=== PATIENT | female | born 1945 | race African-American/Black ===

== ENCOUNTER 2019-05-31 15:14 | Inpatient (IN) | payer MEDICARE ==
[~2019-05-31] VITALS: Ht 165.1 cm; Wt 36.0 kg
[~2019-05-31 15:14] MED LIST: AMLO10TA80 PO; ATOR40TA70 PO; CREON PO; DULO60CA44 PO; LOSA50TA41 PO
[2019-05-31 16:20] LABS: CLARITY URINE CLOUDY (CLEAR); COLOR URINE YELLOW (YELLOW); KETONES URINE NEGATIVE (NEGATIVE); LEUKOCYTE ESTERASE URINE TRACE (NEGATIVE); NITRITE URINE NEGATIVE (NEGATIVE); OCCULT BLOOD URINE NEGATIVE (NEGATIVE); PROTEIN URINE NEGATIVE (NEGATIVE); SPECIFIC GRAVITY URINE 1.021 (1.005-1.030); UROBILINOGEN URINE 0.2 E.U./dL (0.2-1.0)
[2019-05-31 16:25] LABS: PROTHROMBIN TIME 10.5 sec (9.6-11.0)
[2019-05-31 16:28] LABS: CHLORIDE 103 mEq/L (98-107)
[2019-05-31 16:32] LABS: ETHANOL BLOOD < 10 mg/dL
[2019-05-31 16:33] LABS: BASOPHILS % 0.8 % (0.0-2.0); EOSINOPHILS % 2.4 % (0.0-5.0); HEMATOCRIT. 41.2 % (36.0-48.0); LYMPHOCYTES % 37.4 % (20.0-50.0); MEAN CORPUSCULAR HEMOGLOBIN 28.4 pg (28.0-32.0); MEAN CORPUSCULAR VOLUME 90.1 fL (81.0-99.0); MEAN PLATELET VOLUME 9.5 fl (7.4-10.4); MONOCYTES % 7.5 % (2.0-8.0); NEUTROPHILS % 51.9 % (40.0-76.0); PLATELET 216 x1000/uL (130-400); RED BLOOD CELL COUNT 4.57 mill/uL (4.2-5.4); RED CELL DISTRIBUTION WIDTH 15.5 % (11.6-14.6)
[2019-05-31 16:36] LABS: LDL CHOLESTEROL 59 mg/dL (5-100)
[2019-05-31 16:43] LABS: *AMPHETAMINES SCREEN URINE NEGATIVE (NEGATIVE)
[2019-05-31 16:44] LABS: *BARBITURATES SCREEN URINE NEGATIVE (NEGATIVE); *BENZODIAZEPINES SCREEN URINE NEGATIVE (NEGATIVE); *COCAINE SCREEN URINE NEGATIVE (NEGATIVE); METHADONE URINE SCREEN NEGATIVE (NEGATIVE); OPIATES URINE SCREEN NEGATIVE (NEGATIVE); PHENCYCLIDINE URINE SCREEN NEGATIVE (NEGATIVE)
[2019-05-31 16:45] LABS: CANNABINOID URINE SCREEN PRESUMTIVE POSITIVE (NEGATIVE)
[2019-05-31] MEDS ORDERED: CEFTRIAXONE 1 G PREMIX 50 ML IV ONE (18:45)
[2019-05-31] MEDS ORDERED: SODIUM CHLORIDE 0.9% 1,000 ML IV ONE (19:37)
[2019-05-31] MEDS ORDERED: INSULIN REGULAR (HUMULIN R) 300UNITS/3ML SUBCUT ONE (20:30)
[2019-05-31 21:41] VITALS: BP 159/87
[2019-05-31] MEDS ORDERED: ACETAMINOPHEN 325MG TABLET PO PRN (23:15)
[2019-05-31] MEDS ORDERED: DEXTROSE 50% WATER 50ML SYRINGE IV PRN (23:15)
[2019-05-31] MEDS: BLOOD SUGAR DIAGNOSTIC STRIP TEST SCH (23:22)
[2019-05-31] MEDS: INSULIN LISPRO 100 UNITS/ML SUBCUT SCH (23:47)
[2019-05-31] MEDS: TRAMADOL 50MG TABLET PO PRN (23:47)
[2019-06-01] VITALS (7 sets, daily range): BP systolic 122–159; BP diastolic 80–91
[2019-06-01] MEDS ORDERED: ROSU20TA2 MT (02:49)
[2019-06-01] MEDS ORDERED: GABA-290 MT (02:50)
[2019-06-01] MEDS ORDERED: OMEP20CA5 MT (02:50)
[2019-06-01] MEDS ORDERED: HYDR-3280 MT (02:51)
[2019-06-01] MEDS ORDERED: AMYL1CAP59 MT (02:53)
[2019-06-01] MEDS: OMEPRAZOLE 20MG CAPSULE EXTENDED RELEASE PO SCH (06:45)
[2019-06-01] MEDS: BLOOD SUGAR DIAGNOSTIC STRIP TEST SCH ×4 (06:45→20:24)
[2019-06-01] MEDS: INSULIN LISPRO 100 UNITS/ML SUBCUT SCH ×4 (07:17→20:25)
[2019-06-01 07:49] LABS: BASOPHILS % 0.5 % (0.0-2.0); EOSINOPHILS % 2.6 % (0.0-5.0); HEMATOCRIT. 41.3 % (36.0-48.0); HEMOGLOBIN. 13.3 g/dL (12.0-16.0); LYMPHOCYTES % 41.4 % (20.0-50.0); MEAN CORPUSCULAR VOLUME 86.7 fL (81.0-99.0); MEAN PLATELET VOLUME 9.3 fl (7.4-10.4); MONOCYTES % 7.9 % (2.0-8.0); NEUTROPHILS % 47.6 % (40.0-76.0); PLATELET 251 x1000/uL (130-400); RED BLOOD CELL COUNT 4.77 mill/uL (4.2-5.4); RED CELL DISTRIBUTION WIDTH 14.4 % (11.6-14.6)
[2019-06-01 07:57] LABS: CHLORIDE 107 mEq/L (98-107)
[2019-06-01 08:10] LABS: LDL CHOLESTEROL 69 mg/dL (5-100)
[2019-06-01 08:11] LABS: HDL CHOLESTEROL 122 mg/dL (40-59)
[2019-06-01] MEDS: ASPIRIN 325MG EC TABLET PO SCH (09:59)
[2019-06-01] MEDS: HEPARIN 5000 UNITS/ML VIAL SUBCUT SCH ×2 (10:00→19:56)
[2019-06-01] MEDS: GABAPENTIN 300MG CAPSULE PO SCH ×3 (10:00→17:44)
[2019-06-01] MEDS: TRAMADOL 50MG TABLET PO PRN ×2 (13:46→19:55)
[2019-06-01] MEDS ORDERED: INSULIN GLARGINE UD 100 UNITS/ML SYR SUBCUT SCH ×2 (22:00)
[2019-06-01] MEDS ORDERED: TEMAZEPAM 15MG CAPSULE PO PRN (22:45)
[2019-06-02] VITALS: BP 132/80
[2019-06-02] MEDS ORDERED: ERYTHROMYCIN BASE 0.5% OPHTH OINT 3.5GM LEFTEYE SCH
[2019-06-02 04:00] VITALS: BP 135/79
[2019-06-02 06:28] LABS: BASOPHILS % 0.4 % (0.0-2.0); HEMATOCRIT. 43.1 % (36.0-48.0); HEMOGLOBIN. 14.2 g/dL (12.0-16.0); LYMPHOCYTES % 49.2 % (20.0-50.0); MEAN CORPUSCULAR HEMOGLOBIN 28.2 pg (28.0-32.0); MEAN CORPUSCULAR VOLUME 85.6 fL (81.0-99.0); MEAN PLATELET VOLUME 9.1 fl (7.4-10.4); MONOCYTES % 7.7 % (2.0-8.0); NEUTROPHILS % 38.7 % (40.0-76.0); PLATELET 252 x1000/uL (130-400); RED BLOOD CELL COUNT 5.03 mill/uL (4.2-5.4); RED CELL DISTRIBUTION WIDTH 14.7 % (11.6-14.6)
[2019-06-02] MEDS: TRAMADOL 50MG TABLET PO PRN ×2 (06:52→13:19)
[2019-06-02 07:01] LABS: CHLORIDE 103 mEq/L (98-107)
[2019-06-02 08:00] VITALS: BP 145/81
[2019-06-02] MEDS: BLOOD SUGAR DIAGNOSTIC STRIP TEST SCH ×2 (08:07→13:09)
[2019-06-02] MEDS: OMEPRAZOLE 20MG CAPSULE EXTENDED RELEASE PO SCH (08:41)
[2019-06-02] MEDS: HEPARIN 5000 UNITS/ML VIAL SUBCUT SCH (08:41)
[2019-06-02] MEDS: GABAPENTIN 300MG CAPSULE PO SCH ×2 (08:42→13:08)
[2019-06-02] MEDS: ASPIRIN 325MG EC TABLET PO SCH (08:42)
[2019-06-02] MEDS: INSULIN LISPRO 100 UNITS/ML SUBCUT SCH ×2 (08:44→13:09)
[2019-06-02 12:00] VITALS: BP 128/81
[2019-06-02] MEDS ORDERED: LEVO500T2 MT (13:05)
[2019-06-02] MEDS ORDERED: ERYT1OIN6 OP (13:05)
[2019-06-02] MEDS ORDERED: FLUCONAZOLE 100MG TABLET PO NR (13:15)
[2019-06-02 13:28] VITALS: BP 128/81
[2019-06-02] MEDS ORDERED: LEVOFLOXACIN 500MG TABLET PO NR (13:30)
[2019-06-03] MEDS ORDERED: LEVOFLOXACIN 250MG TABLET PO SCH (11:00)
== END 2019-06-02 16:51 | disposition home health service (06) | DRG 73 ==
LOC: ER 15:28 → 7WST 17:02 → EDBEDREQTM 17:11 → EDBEDREQSVC 17:11 → EDBEDREQ 17:11 → ENRESERV 18:52
PROVIDERS: ADMIT Internal Medicine; ATTEND Internal Medicine
DX: G51.0 Bell's palsy (principal); N17.0 Acute kidney failure with tubular necrosis; N39.0 Urinary tract infection, site not specified; E87.1 Hypo-osmolality and hyponatremia; E11.51 Type 2 diabetes mellitus with diabetic peripheral angiopathy without gangrene; E11.65 Type 2 diabetes mellitus with hyperglycemia; E78.5 Hyperlipidemia, unspecified; F12.90 Cannabis use, unspecified, uncomplicated; I10 Essential (primary) hypertension; J44.9 Chronic obstructive pulmonary disease, unspecified; E78.00 Pure hypercholesterolemia, unspecified; K59.00 Constipation, unspecified; R74.0 Nonspecific elevation of levels of transaminase and lactic acid dehydrogenase [LDH]; M54.30 Sciatica, unspecified side; Z89.512 Acquired absence of left leg below knee; Z88.0 Allergy status to penicillin; Z79.899 Other long term (current) drug therapy
CPT/HCPCS: 36415; 70551; 71045; 80048; 80061; 80305; 80320; 81003; 82962; 83036; 83721; 84484; 93005; 93306; 93880; 96361; 96365; 96372; 97116; 97162; 97165; 99285; A6261; J0696; J1644; J1815; J7030; G0480